=== PATIENT | female | born 1965 | race Caucasian/White ===

== ENCOUNTER 2021-10-14 18:13 | Inpatient (IN) | payer MEDICAID, SELFPAY ==
[2021-10-14 18:18] VITALS: BP 175/105; PULSE 66; RESP 16; TEMP 37; O2SAT 97; BMI 28.3
--- NOTE | 2021-10-14 18:33 | ED.C_ITS ---
Documented by User: NAKIA Márquez 10/14/21 21:11 HPI - Psych General: Chief Complaint: Psychiatric Symptoms Stated Complaint: SI Time Seen by Provider: 10/14/21 18:28 History of Present Illness: She states she does not feel like living. She lost her son last February and is been having mental health problems since then. Just recently put on Pristiq and that she has made her sleep too much and she just does not feel like going on in life. [facility] [place]. Said she needs help she is reaching out to us because she did not know what would happen if her life that she did not receive immediate help. Associated symptoms: Reports depression and suicidal ideation (Does not have a plan but she does says she wants help); Deny homicidal ideation Review of Systems Const: Denies: fever(s), chills or body aches Eyes: Denies: eye discomfort ENMT: Denies: throat pain Card: Denies: chest pain Resp: Denies: dyspnea GI: Denies: abdominal pain, nausea or vomiting Skin/Breast: Denies: rash Neuro: Denies: headache(s) Psych: Reports: depression, sleeping more and suicidal ideation (Does not have a plan but she does says she wants help); Denies: homicidal ideation Physical Exam Const: COMMON NORMALS: no acute distress, patient oriented x3 and alert HENMT: COMMON NORMALS: normocephalic and external ears normal HEAD & SCALP: normocephalic EXTERNAL EAR: Yes external ears normal Eye: COMMON NORMALS: EOMs intact bilaterally Neck/C-Spine: COMMON NORMALS: no JVD Resp: COMMON NORMALS: normal respiratory effort and No use of accessory muscles Cardio: COMMON NORMALS: no JVD GI: INSPECTION: Yes normal to inspection Extremity: COMMON NORMALS: normal to inspection and full ROM Neuro: COMMON NORMALS: patient oriented x3 SENSORIUM/ORIENTATION: Yes alert Psych: COMMON NORMALS: mental status grossly normal MOOD & AFFECT: Yes depressed mood Skin: COMMON NORMALS: no rashes or lesions noted GENERAL SKIN EXAM: no rashes or lesions noted Course Vital Signs: Vital signs: Vital Signs Temperature 98.6 F 10/14/21 18:18 Pulse Rate 66 10/14/21 18:18 Respiratory Rate 16 10/14/21 18:18 Blood Pressure 175/105 10/14/21 18:18 Pulse Oximetry 97 10/14/21 18:18 MDM - Psych Medical Decision Making Patient suicidal. I spoke with Dr. Lindo he agrees accept patient for admission and went over low platelet and white blood cell count with Dr. Lindo. Lab Data : 10/14/21 19:56 10/14/21 19:56 Laboratory Results WBC 3.2 10^3/uL (4.0-10.0) L 10/14/21 19:56 RBC 4.53 10^6/uL (4.1-5.3) 10/14/21 19:56 Hgb 14.9 g/dL (11.5-15.3) 10/14/21 19:56 Hct 42.8 % (37.0-47.0) 10/14/21 19:56 MCV 94.5 fl (81-99) 10/14/21 19:56 MCH 32.9 pg (28.0-34.0) 10/14/21 19:56 MCHC 34.8 g/dL (30.0-36.0) 10/14/21 19:56 RDW 12.7 % (12.1-15.1) 10/14/21 19:56 Plt Count 89 10^3/cmm (130-400) L 10/14/21 19:56 MPV 10.9 fL (7.4-10.4) H 10/14/21 19:56 Neut % (Auto) 52.6 % 10/14/21 19:56 Lymph % (Auto) 35.8 % 10/14/21 19:56 Mcclain % (Auto) 9.4 % 10/14/21 19:56 Eos % (Auto) 1.6 % 10/14/21 19:56 Baso % (Auto) 0.6 % 10/14/21 19:56 Neut # (Auto) 1.67 10^3/uL (1.8-7.7) L 10/14/21 19:56 Lymph # (Auto) 1.1 10^3/uL (0.8-4.8) 10/14/21 19:56 Mcclain # (Auto) 0.3 10^3/uL (0.2-0.9) 10/14/21 19:56 Eos # (Auto) 0.1 10^3/uL (0.0-0.8) 10/14/21 19:56 Baso # (Auto) 0.0 10^3/uL (0.0-0.1) 10/14/21 19:56 Nucleated RBC % (auto) 0 % 10/14/21 19:56 Nucleated RBCs # 0.0 /100WBC 10/14/21 19:56 Sodium 142 mmol/L (136-145) 10/14/21 19:56 Potassium 3.9 mmol/L (3.5-5.1) 10/14/21 19:56 Chloride 107 mmol/L (98-107) 10/14/21 19:56 Carbon Dioxide 25 mmol/L (22-29) 10/14/21 19:56 Anion Gap 13.9 (5-19) 10/14/21 19:56 BUN 15 mg/dL (6-20) 10/14/21 19:56 Creatinine 0.7 mg/dL (0.5-0.9) 10/14/21 19:56 GFR Calculation 87.5 mL/min (90-130) L 10/14/21 19:56 Glucose 103 mg/dL (65-115) 10/14/21 19:56 Calculated Osmolality 295 mOsm/kg (285-295) 10/14/21 19:56 Calcium 8.6 mg/dL (8.5-10.5) 10/14/21 19:56 Total Bilirubin 0.5 mg/dL (0.15-1.2) 10/14/21 19:56 AST 113 U/L (0-32) H 10/14/21 19:56 ALT 129 U/L (0-33) H 10/14/21 19:56 Alkaline Phosphatase 109 IU/L (35-105) H 10/14/21 19:56 Total Protein 7.2 g/dL (6.6-8.7) 10/14/21 19:56 Albumin 4.4 g/dL (3.5-5.2) 10/14/21 19:56 Globulin 2.8 g/dL (1.3-4.6) 10/14/21 19:56 Salicylates < 0.3 mg/dL (3-10) L 10/14/21 19:56 Acetaminophen < 5.0 ug/mL (10-30) L 10/14/21 19:56 Ethyl Alcohol < 10 mg/dL (0-10) 10/14/21 19:56 Discharge Plan Discharge Condition: Stable Referrals: Alda Ulloa DO [Primary Care Provider] - Coding Level of Care Code ED Ui Developer With Angular Js for Chg Fwd Exam Comprehensive Documented by User: Grayson Alfaro DO 10/14/21 21:16 HPI - Psych General: Chief Complaint: Psychiatric Symptoms Stated Complaint: SI Time Seen by Provider: 10/14/21 18:28 Course Vital Signs: Vital signs: Vital Signs Temperature 98.6 F 10/14/21 18:18 Pulse Rate 66 10/14/21 18:18 Respiratory Rate 16 10/14/21 18:18 Blood Pressure 175/105 10/14/21 18:18 Pulse Oximetry 97 10/14/21 18:18 MDM - Psych Medical Decision Making Patient suicidal. I spoke with Dr. Lindo he agrees accept patient for admission and went over low platelet and white blood cell count with Dr. Lindo. This patient was originally seen by NAKIA Copeland.? I agree with his history, evaluation, and treatment. Lab Data : 10/14/21 19:56 10/14/21 19:56 Laboratory Results WBC 3.2 10^3/uL (4.0-10.0) L 10/14/21 19:56 RBC 4.53 10^6/uL (4.1-5.3) 10/14/21 19:56 Hgb 14.9 g/dL (11.5-15.3) 10/14/21 19:56 Hct 42.8 % (37.0-47.0) 10/14/21 19:56 MCV 94.5 fl (81-99) 10/14/21 19:56 MCH 32.9 pg (28.0-34.0) 10/14/21 19:56 MCHC 34.8 g/dL (30.0-36.0) 10/14/21 19:56 RDW 12.7 % (12.1-15.1) 10/14/21 19:56 Plt Count 89 10^3/cmm (130-400) L 10/14/21 19:56 MPV 10.9 fL (7.4-10.4) H 10/14/21 19:56 Neut % (Auto) 52.6 % 10/14/21 19:56 Lymph % (Auto) 35.8 % 10/14/21 19:56 Mcclain % (Auto) 9.4 % 10/14/21 19:56 Eos % (Auto) 1.6 % 10/14/21 19:56 Baso % (Auto) 0.6 % 10/14/21 19:56 Neut # (Auto) 1.67 10^3/uL (1.8-7.7) L 10/14/21 19:56 Lymph # (Auto) 1.1 10^3/uL (0.8-4.8) 10/14/21 19:56 Mcclain # (Auto) 0.3 10^3/uL (0.2-0.9) 10/14/21 19:56 Eos # (Auto) 0.1 10^3/uL (0.0-0.8) 10/14/21 19:56 Baso # (Auto) 0.0 10^3/uL (0.0-0.1) 10/14/21 19:56 Nucleated RBC % (auto) 0 % 10/14/21 19:56 Nucleated RBCs # 0.0 /100WBC 10/14/21 19:56 Sodium 142 mmol/L (136-145) 10/14/21 19:56 Potassium 3.9 mmol/L (3.5-5.1) 10/14/21 19:56 Chloride 107 mmol/L (98-107) 10/14/21 19:56 Carbon Dioxide 25 mmol/L (22-29) 10/14/21 19:56 Anion Gap 13.9 (5-19) 10/14/21 19:56 BUN 15 mg/dL (6-20) 10/14/21 19:56 Creatinine 0.7 mg/dL (0.5-0.9) 10/14/21 19:56 GFR Calculation 87.5 mL/min (90-130) L 10/14/21 19:56 Glucose 103 mg/dL (65-115) 10/14/21 19:56 Calculated Osmolality 295 mOsm/kg (285-295) 10/14/21 19:56 Calcium 8.6 mg/dL (8.5-10.5) 10/14/21 19:56 Total Bilirubin 0.5 mg/dL (0.15-1.2) 10/14/21 19:56 AST 113 U/L (0-32) H 10/14/21 19:56 ALT 129 U/L (0-33) H 10/14/21 19:56 Alkaline Phosphatase 109 IU/L (35-105) H 10/14/21 19:56 Total Protein 7.2 g/dL (6.6-8.7) 10/14/21 19:56 Albumin 4.4 g/dL (3.5-5.2) 10/14/21 19:56 Globulin 2.8 g/dL (1.3-4.6) 10/14/21 19:56 Salicylates < 0.3 mg/dL (3-10) L 10/14/21 19:56 Acetaminophen < 5.0 ug/mL (10-30) L 10/14/21 19:56 Ethyl Alcohol < 10 mg/dL (0-10) 10/14/21 19:56 Discharge Plan Discharge Condition: Stable Referrals: Alda Ulloa DO [Primary Care Provider] - Coding Level of Care Code ED Ui Developer With Angular J[employer] for Chg Fwd Exam Comprehensive
[2021-10-14 20:25] LABS: Basophils % 0.6 %; Eosinophils # 0.1 10^3/uL (0.0-0.8); Eosinophils % 1.6 %; Hematocrit 42.8 % (37.0-47.0); Hemoglobin 14.9 g/dL (11.5-15.3); Lymphocytes # 1.1 10^3/uL (0.8-4.8); Lymphocytes % 35.8 %; Mean Corpuscular HGB Conc 34.8 g/dL (30.0-36.0); Mean Corpuscular Hemoglobin 32.9 pg (28.0-34.0); Mean Corpuscular Volume 94.5 fl (81-99); Mean Platelet Volume 10.9 fL (7.4-10.4); Monocytes # 0.3 10^3/uL (0.2-0.9); Monocytes % 9.4 %; Neutrophils # 1.67 10^3/uL (1.8-7.7); Neutrophils % 52.6 %; Nucleated Red Blood Cells % 0 %; Platelet Count 89 10^3/cmm (130-400); Red Blood Count 4.53 10^6/uL (4.1-5.3); Red Cell Distribution Width 12.7 % (12.1-15.1); White Blood Count 3.2 10^3/uL (4.0-10.0)
[2021-10-14 20:48] LABS: Alanine Aminotransferase 129 U/L (0-33); Albumin Level 4.4 g/dL (3.5-5.2); Alkaline Phosphatase 109 IU/L (35-105); Anion Gap 13.9 (5-19); Aspartate Amino Transferase 113 U/L (0-32); Blood Urea Nitrogen 15 mg/dL (6-20); Calcium 8.6 mg/dL (8.5-10.5); Carbon Dioxide 25 mmol/L (22-29); Chloride 107 mmol/L (98-107); Globulin 2.8 g/dL (1.3-4.6); Glomerular Filtration Rate 87.5 mL/min (90-130); Glucose 103 mg/dL (65-115); Osmolality Calculated 295 mOsm/kg (285-295); Potassium 3.9 mmol/L (3.5-5.1); Sodium 142 mmol/L (136-145); Total Bilirubin 0.5 mg/dL (0.15-1.2); Total Protein 7.2 g/dL (6.6-8.7)
[2021-10-14 20:50] LABS: Acetaminophen < 5.0 ug/mL (10-30); Alcohol Level < 10 mg/dL (0-10); Salicylate < 0.3 mg/dL (3-10)
[2021-10-14 21:53] VITALS: BP 177/89; PULSE 66; RESP 18; TEMP 36.8; O2SAT 98
[2021-10-14 22:00] VITALS: BP 177/89; PULSE 66; RESP 18; TEMP 36.8; O2SAT 98
[2021-10-14] MEDS: hyDROXYzine 25 mg Capsule 50 MG PO (22:28)
[2021-10-14 23:37] LABS: Add Urine Microscopic? NO; Charge for UA Resulting for Rev
--- NOTE | 2021-10-14 23:56 | PC.ADMIT ---
Admission Note: She states she does not feel like living. She lost her son last February and is been having mental health problems since then. Just recently put on Pristiq and that she has made her sleep too much and she just does not feel like going on in life. s[facility] is staying [facility] in [place]. Said she needs help she is reaching out to us because she did not know what would happen if her life that she did not receive immediate help. Associated symptoms: Reports depression and suicidal ideation (Does not have a plan but she does says she wants help Patient lost her 25 year old son to an OD in March 13. She has been depressed since. She says that it has only gotten worse. She sees a psychiatrist who prescribes her meds and goes to a fabulous therapist. She stated that her meds were not working so she called her therapist on Friday and was told to stop the meds and see her at the net appt. Since being off of he meds for 48 hours her depression has significantly worsened. She states that she either doesn't sleep or sleeps too much. She has severe panic and anxiety attacks. She has lost her motivation to want to do anything and can't focus anymore. The patient,Mendez Morgan,55 y/o, was given written information regarding hospital policies, unit procedures and contact persons. Patient's smoking status: . Vital Signs - 8 hr 10/14/21 18:18 10/14/21 21:53 10/14/21 22:00 Temperature 98.6 F 98.2 F 98.2 F Pulse Rate 66 66 66 Respiratory Rate 16 18 18 Blood Pressure 175/105 177/89 177/89 Pulse Oximetry 97 98 98
[2021-10-15 00:03] LABS: Amphetamines Screen Urine Negative (Negative); Barbiturates Screen Urine Negative (Negative); Benzodiazepines Screen Urine Negative (Negative); Bilirubin Urine Neg (Negative); Blood Urine Neg (Negative); Cocaine Screen Urine Negative (Negative); Glucose Urine UA Norm (Normal); Ketones Urine Negative (Negative); Leukocyte Esterase Urine Negative (Negative); Nitrate Urine Negative (Negative); Opiate Screen Urine Negative (Negative); PCP Screen Urine Negative (Negative); Protein Urine Neg (Negative); THC Screen Urine Negative (Negative); Urine Appearance Clear (CLEAR); Urine Color Yellow (Yellow); Urobilinogen Urine 1 mg/dL (Negative); pH Urine 6 (5-7)
[2021-10-15 06:00] VITALS: BP 154/85; PULSE 60; RESP 16; TEMP 36.6; O2SAT 98
[2021-10-15 14:00] VITALS: BP 147/85; PULSE 67; RESP 16; TEMP 36.6; O2SAT 97
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
[2021-10-15] MEDS: fluoxetine 20 mg Capsule PO (16:57)
[2021-10-15 20:45] VITALS: BP 153/87; PULSE 71; RESP 18; TEMP 36.8; O2SAT 97
[2021-10-16 06:00] VITALS: BP 145/83; PULSE 61; RESP 16; TEMP 36.6; O2SAT 97
[2021-10-16] MEDS: fluoxetine 20 mg Capsule PO (09:44)
[2021-10-16] MEDS: acetaminophen 325 mg Tablet 650 MG PO ×2 (11:18→18:24)
[2021-10-16 14:00] VITALS: BP 163/84; PULSE 71; RESP 18; TEMP 37.2; O2SAT 97
--- NOTE | 2021-10-16 18:02 | W.PM.NPUPNS ---
Subjective NPU Subjective: Patient resents today reporting that she is feeling better with the introduction of the Prozac. She reports having some renewed optimism that things can improve. She reports that she is working with the social work team for options to assist her in her reconnection to outpatient services and any sobriety treatment and she is eating and sleeping a little better. Mental Status Exam MSE Comments: This is overweight versus obese white female in hosptial scrubs with adequate grooming and limited eye contact. Really poor dentition. No abnormal movements except for mild psychomotor retardation. Cooperative with exam in no acute distress. Speech was decreased rate and volume. Mood described as a little better, affect congruent. Thought process, organized. Thought content: patient denies any suicidal or homicidal ideation, no delusions noted but she does report paranoia though she does not appear guarded, and denies any auditory or visual hallucinations. Attention and concentration are intact and memory is reliable but none were formally tested. She is alert and oriented three times. Insight and judgment are limited. Impulse control is limited. Vitals/I&O/Wt Last Vital Signs Temp 98.9 F 10/16/21 14:00 Pulse 71 10/16/21 14:00 Resp 18 10/16/21 14:00 BP 163/84 10/16/21 14:00 Pulse Ox 97 10/16/21 14:00 Data NPU : 10/14/21 19:56 10/14/21 19:56 A&P Assessment and plan (1) Bereavement: Status: Acute (2) Major depressive disorder, recurrent: Status: Acute (3) PTSD (post-traumatic stress disorder): Status: Acute Plan This is a 55 year old white female with post traumatic stress disorder, major depressive disorder, recurrent, bereavement, and significant addiction who presents after reportedly having a bad reaction to Pristiq and open to changing medications. 1. Continue current medications. Officially discontinued Pristiq and initiated Prozac 20 mg po qam. 2. Encourage individual, group and milieu therapy 3. Continue q-15 minute check for safety 4. Recommend sober living treatment at the highest level of care to which the patient is willing to commit. Involuntary Hold Information 96 Hour Hold: 96 Hour Involuntary Admission: No Attestations NPU Medical Necessity Statement*: Inpatient hospitalization is medically necessary and the clinically appropriate intervention at this time. We will monitor medications and make changes as indicated. Likely length of stay is t 2-4 days. Coding Level of Care Code Acute Graduate Assistant Athletic Trainer for Chg Fwd Diagnoses Bereavement Z63.4 Major depressive disorder, recurrent F33.9 PTSD (post-traumatic stress disorder) F43.10
[2021-10-16 20:23] VITALS: BP 157/96; PULSE 75; RESP 16; TEMP 36.4; O2SAT 98
[2021-10-17 06:00] VITALS: BP 149/85; PULSE 66; RESP 18; TEMP 36.6; O2SAT 98
[2021-10-17] MEDS: fluoxetine 20 mg Capsule PO (08:32)
--- NOTE | 2021-10-17 13:58 | P.NPUPN_ITS ---
Subjective NPU Subjective: Patient presents today reporting that she is feeling much better overall.We were able to reach out to her ministry program from when she came and they reported that they are open to her returning tomorrow. She reports he thinks she will be ready and that the medications for her have been effective. She reports he is eating and sleeping better and feeling more optimistic about returning to her recovery work. Mental Status Exam MSE Comments: This is overweight versus obese white female in hosptial scrubs with adequate grooming and limited eye contact. Really poor dentition. No abnormal movements except for mild psychomotor retardation. Cooperative with exam in no acute distress. Speech was more normal rate and volume. Mood described as better, affect congruent. Thought process, organized. Thought content: patient denies any suicidal or homicidal ideation, no delusions noted or reported, and denies any auditory or visual hallucinations. Attention and concentration are intact and memory is reliable but none were formally tested. She is alert and oriented three times. Insight and judgment are limited. Impulse control is limited. Vitals/I&O/Wt Last Vital Signs Temp 97.9 F 10/17/21 06:00 Pulse 66 10/17/21 06:00 Resp 18 10/17/21 06:00 BP 149/85 10/17/21 06:00 Pulse Ox 98 10/17/21 06:00 Data NPU : 10/14/21 19:56 10/14/21 19:56 A&P Assessment and plan (1) Bereavement: Status: Acute (2) Major depressive disorder, recurrent: Status: Acute (3) PTSD (post-traumatic stress disorder): Status: Acute Plan This is a 55 year old white female with post traumatic stress disorder, major depressive disorder, recurrent, bereavement, and significant addiction who pre sents after reportedly having a bad reaction to Pristiq and open to changing medications. 1.? Continue current medications. Officially discontinued Pristiq and initiated Prozac 20 mg po qam. 2.? Encourage individual, group and milieu therapy 3.? Continue q-15 minute check for safety 4.? Recommend sober living treatment at the highest level of care to which the patient is willing to commit. Involuntary Hold Information 96 Hour Hold: 96 Hour Involuntary Admission: No Attestations NPU Medical Necessity Statement*: Inpatient hospitalization is medically necessary and the clinically appropriate intervention at this time. We will monitor medications and make changes as indicated.? Likely length of stay is 1-2 days. Tentative plan for discharge tomorrow. Coding Level of Care Code Acute Road Roller Operator for Jada Fwd Diagnoses Bereavement Z63.4 Major depressive disorder, recurrent F33.9 PTSD (post-traumatic stress disorder) F43.10
[2021-10-17 14:00] VITALS: BP 145/77; PULSE 70; RESP 16; TEMP 36.7; O2SAT 98
[2021-10-17] MEDS: blistex lip oint 7 gm Tube 1 APPLIC TOPICAL (18:08)
[2021-10-17] MEDS: acetaminophen 325 mg Tablet 650 MG PO (21:22)
[2021-10-17 21:24] VITALS: BP 146/72; PULSE 73; RESP 18; TEMP 36.8; O2SAT 97
[2021-10-18 06:00] VITALS: BP 155/95; PULSE 67; RESP 18; TEMP 36.2; O2SAT 97
[2021-10-18] MEDS: fluoxetine 20 mg Capsule PO (09:51)
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
[2021-10-18 12:39] VITALS: BP 155/95; PULSE 67; RESP 18; TEMP 36.2; O2SAT 97
[2021-10-18 14:00] VITALS: BP 155/95; PULSE 67; RESP 18; TEMP 36.2; O2SAT 97
--- NOTE | 2021-10-18 14:16 | PC.NURSE ---
Discharge note Discharge teaching completed with all medications reviewed. Discussed all appointments and times. Received property and signed property sheet that she retained property at discharge. Received medications, signed home medication sheet that they were received. Left with prescriptions. All questions answered and support voiced. Left NPU at 1410. [facility] staff came to pick her up.
== END 2021-10-18 14:10 | disposition home or self-care (01) | DRG 885 ==
LOC: ER 18:44 → NP 21:20
PROVIDERS: Admitting Provider Psychiatry & Neurology Psychiatry; Emergency Provider Nurse Practitioner Family; PCP Family Medicine; Visit Provider Psychiatry & Neurology Psychiatry
DX: F33.9 Major depressive disorder, recurrent, unspecified (principal); R45.851 Suicidal ideations; Z63.4 Disappearance and death of family member; Z81.8 Family history of other mental and behavioral disorders; Z59.01 Sheltered homelessness; F43.10 Post-traumatic stress disorder, unspecified
CPT/HCPCS: 80053; 80306; 80307; 81003; 85025; 97150; 97165; 99285

== ENCOUNTER → 2022-02-21 11:35 | Outpatient (BNVA) | payer MEDICAID, SELFPAY | PROVIDERS: PCP Family Medicine; Visit Provider Registered Nurse | DX: Z79.899 Other long term (current) drug therapy (principal) | CPT/HCPCS: 80061; 82306; 82607; 83036; 84443 ==

== ENCOUNTER → 2022-07-11 12:29 | Outpatient (BNVA) | payer OTHER, MEDICAID, SELFPAY ==
[2022-03-07 16:08] VITALS: BP 162/91; BMI 30.2
== END ==
PROVIDERS: PCP Family Medicine; Visit Provider Emergency Medicine
DX: M25.512 Pain in left shoulder (principal)
CPT/HCPCS: 73030

== ENCOUNTER → 2022-10-01 15:03 | Outpatient (BNVA) | payer MEDICAID, SELFPAY ==
[2022-03-07 16:08] VITALS: BP 162/91; BMI 30.2
== END ==
PROVIDERS: PCP Family Medicine; Visit Provider Family Medicine
DX: I10 Essential (primary) hypertension (principal); Z13.220 Encounter for screening for lipoid disorders; Z13.6 Encounter for screening for cardiovascular disorders; Z11.59 Encounter for screening for other viral diseases
CPT/HCPCS: 80053; 80061; 86803

== ENCOUNTER → 2022-10-02 22:15 | Outpatient (BNVA) | payer MEDICAID, SELFPAY ==
[2022-03-07 16:08] VITALS: BP 162/91; BMI 30.2
== END ==
PROVIDERS: PCP Family Medicine; Visit Provider Family Medicine
DX: Z11.59 Encounter for screening for other viral diseases (principal)
CPT/HCPCS: 87522

== ENCOUNTER → 2022-11-29 12:25 | Outpatient (BNVA) | payer MEDICAID, SELFPAY ==
[2022-03-07 16:08] VITALS: BP 162/91; BMI 30.2
== END ==
PROVIDERS: PCP Family Medicine; Visit Provider Family Medicine
DX: B18.2 Chronic viral hepatitis C (principal); I10 Essential (primary) hypertension
CPT/HCPCS: 80053; 80074; 82977; 85025; 85610; 87522; 87806; 87902

== ENCOUNTER → 2022-12-02 08:08 | Outpatient (BNVA) | payer MEDICAID, SELFPAY ==
[2022-03-07 16:08] VITALS: BP 162/91; BMI 30.2
== END ==
PROVIDERS: PCP Family Medicine; Visit Provider Family Medicine
DX: B19.20 Unspecified viral hepatitis C without hepatic coma (principal); I10 Essential (primary) hypertension
CPT/HCPCS: 85610

== ENCOUNTER → 2023-02-03 09:05 | Outpatient (BNVA) | payer MEDICAID, SELFPAY ==
[2022-03-07 16:08] VITALS: BP 162/91; BMI 30.2
== END ==
PROVIDERS: PCP Family Medicine; Referring Provider Family Medicine; Visit Provider Family Medicine
DX: B18.2 Chronic viral hepatitis C (principal)
CPT/HCPCS: 85025

== ENCOUNTER → 2023-03-05 17:21 | Outpatient (BNVA) | payer OTHER, SELFPAY ==
[2022-03-07 16:08] VITALS: BP 162/91; BMI 30.2
== END ==
PROVIDERS: PCP Family Medicine; Visit Provider Psychiatry & Neurology Neurology
DX: F33.9 Major depressive disorder, recurrent, unspecified (principal)
CPT/HCPCS: 80061; 83036

== ENCOUNTER → 2023-04-09 10:10 | Outpatient (BNVA) | payer SELFPAY ==
[2023-03-11 16:23] VITALS: BP 144/82; BMI 30.6
== END ==
PROVIDERS: PCP Family Medicine; Visit Provider Family Medicine
DX: I10 Essential (primary) hypertension (principal); M54.50 Low back pain, unspecified; G89.29 Other chronic pain; M54.2 Cervicalgia; B18.2 Chronic viral hepatitis C; F33.9 Major depressive disorder, recurrent, unspecified; Z59.89 Other problems related to housing and economic circumstances; Z91.199 Patient's noncompliance with other medical treatment and regimen due to unspecified reason
CPT/HCPCS: 80074; 85610; 87522; 87806; 87902

== ENCOUNTER → 2023-04-11 09:16 | Outpatient (BNVA) | payer SELFPAY ==
[2023-03-11 16:23] VITALS: BP 144/82; BMI 30.6
== END ==
PROVIDERS: PCP Family Medicine; Referring Provider Family Medicine; Visit Provider Family Medicine
DX: G89.29 Other chronic pain (principal); M54.2 Cervicalgia; M54.50 Low back pain, unspecified; M47.812 Spondylosis without myelopathy or radiculopathy, cervical region
CPT/HCPCS: 72040; 72100

== ENCOUNTER 2023-11-21 08:11 | Outpatient (CLI) | payer MEDICAID, SELFPAY ==
[2023-03-11 16:23] VITALS: BP 144/82; BMI 30.6
--- NOTE | 2023-11-21 08:20 | US_ITS ---
WS: [id number] Complete ABDOMINAL ULTRASOUND HISTORY: HEP C COMPARISON: None available. Liver: 15.6 cm in length. Liver is top normal size. Coarse echotexture. No mass. Surface of the liver is demonstrating early changes of nodularity seen with cirrhosis. No intrahepatic duct dilatation. Portal Vein: Normal hepatopetal flow with monophasic waveform. Gallbladder: Normally distended gallbladder with no stones or wall thickening. CBD: 0.5 cm Pancreas: Obscured. Right kidney: 8.2 cm x 4.1 x 3.9 cm. Cortex:0.9 cm. Mild atrophy. No obstruction or mass. Mild cortical thinning. Left kidney: 10.4 cm x 3.6 cm x 4.7 cm. Cortex: 1.1 cm. Normal size and echogenicity. No hydronephrosis or mass. Spleen: 13.5 cm. Spleen is slightly enlarged. No mass. Aorta and IVC: Unremarkable abdominal aorta and IVC. US/US abdomen complete* [id number] Impression: 1. No hepatic mass. 2. Early hepatic changes along the surface seen with cirrhosis. 3. Negative gallbladder. 4. Mild atrophy RIGHT kidney with cortical thinning. 5. Top normal size spleen.
== END 2023-11-21 08:12 | disposition home or self-care (01) ==
LOC: RAD 08:11
PROVIDERS: PCP Family Medicine; Visit Provider Family Medicine
DX: B19.20 Unspecified viral hepatitis C without hepatic coma (principal)
CPT/HCPCS: 76700